=== PATIENT | female | born 1980 | race Caucasian/White ===

== ENCOUNTER 2025-06-11 20:09 | Emergency (ER) | payer BC ==
[2025-06-11 21:33] LABS: BASOPHILS ABSOLUTE AUTO 0.06 K/uL (0.00-0.20); BASOPHILS PERCENT AUTO 0.8 % (0.0-1.0); EOSINOPHILS ABSOLUTE AUTO 0.16 K/uL (0.00-0.45); EOSINOPHILS PERCENT AUTO 2.0 % (0.0-6.0); IMMATURE GRAN ABSOLUTE AUTO 0.02 K/uL (0.00-0.05); IMMATURE GRAN PERCENT AUTO 0.3 % (0.0-0.4); LYMPHOCYTES ABSOLUTE AUTO 3.88 K/uL (1.00-4.80); LYMPHOCYTES PERCENT AUTO 48.9 % (24.0-44.0); MEAN PLATELET VOLUME 11.0 fL (9.4-12.3); MONOCYTES ABSOLUTE AUTO 0.61 K/uL (0.00-0.80); MONOCYTES PERCENT AUTO 7.7 % (0.0-8.0); NEUTROPHILS ABSOLUTE AUTO 3.20 K/uL (1.80-7.70); NEUTROPHILS PERCENT AUTO 40.3 % (41.0-71.0); NRBC ABSOLUTE 0.00 K/uL (0.00-0.02); NRBC PERCENT 0.0 /100WBC (0.0-0.2); PLATELET COUNT,PLT 396 K/uL (150-400); RED BLOOD CELL COUNT 4.37 M/uL (4.10-5.30); WHITE BLOOD CELL COUNT,WBC 7.93 K/uL (3.9-11.3)
[2025-06-11 21:38] LABS: BLOOD UREA NITROGEN,BUN 10.0 mg/dL (7.0-18.0); CARBON DIOXIDE,CO2 25.7 mmol/L (21.0-32.0); CHLORIDE,CL 103.0 mmol/L (98-107); CREATININE 1.1 mg/dL (0.6-1.0); EST CRCL DRUG DOSING (CG) 64.46 mL/min; GLUCOSE RANDOM 143.0 mg/dL (74-106); POTASSIUM,K 3.8 mmol/L (3.5-5.1); SODIUM,NA 138.0 mmol/L (136-145)
[2025-06-11 21:39] LABS: ESTIMATED GFR 63.0 mL/min (>60)
[2025-06-11] MEDS: Ondansetron 4 MG/2 ML SDV IVPUSH ONE (21:39)
[2025-06-11] MEDS: Ketorolac 30 MG/ML SDV IVPUSH ONE (21:39)
[2025-06-11 21:46] LABS: APPEARANCE,URINE CLEAR; GLUCOSE,URINE NEGATIVE (NEGATIVE); OCCULT BLOOD,URINE LARGE (NEGATIVE)
[2025-06-11 21:55] LABS: EPITHELIAL CELLS,URINE FEW (NONE-FEW)
== END 2025-06-11 22:49 | disposition home or self-care (01) ==
LOC: MW.ED 20:09
DX: N20.2 Calculus of kidney with calculus of ureter (principal)
CPT/HCPCS: 36415; 74176; 80048; 81001; 85025; 96361; 96374; 96375; 99284; J1885; J2405; J7030; 99283

== ENCOUNTER 2025-10-26 19:03 | Emergency (ER) | payer BC, OTHER | END 2025-10-26 21:18 | disposition home or self-care (01) | LOC: MW.ED 19:03 | DX: S52.131A Displaced fracture of neck of right radius, initial encounter for closed fracture (principal); Z75.3 Unavailability and inaccessibility of health-care facilities; W00.0XXA Fall on same level due to ice and snow, initial encounter | CPT/HCPCS: 73080; 99283; A9270 ==